=== PATIENT | male | born 1950 | race Caucasian/White ===

== ENCOUNTER 2020-11-27 20:04 | Inpatient (IN) | payer OTHER ==
[~2020-11-27] VITALS: Ht 177.8 cm; Wt 79.8 kg
[2020-11-27 20:07] VITALS: BP 167/91
[2020-11-27] MEDS ORDERED: ASA81BEC PO (20:11)
[2020-11-27] MEDS ORDERED: ENTRESTO 49 MG1 EACH PO (20:11)
[2020-11-27] MEDS ORDERED: CARVEDILOL25 MG PO (20:12)
[2020-11-27] MEDS ORDERED: LIVALO4 MG PO (20:12)
[2020-11-27] MEDS ORDERED: BRILINTA90 MG PO (20:12)
[2020-11-27 20:37] LABS: ABSOLUTE NEUTROPHILS 7.8 thou/uL (1.4-8.2); BASOPHILS 0.4 % (0.0-2.0); EOSINOPHILS 0.5 % (0.0-3.0); HEMATOCRIT 46.6 % (42.0-52.0); HEMOGLOBIN 15.6 gm/dL (14.0-18.0); LYMPHOCYTES 12.3 % (24.0-44.0); MCH 29.9 pg (26.0-34.0); MCHC 33.6 g/dL (28.0-37.0); MONOCYTES 8.7 % (1.0-8.0); PLATELET COUNT 129 thou/uL (150-400); POLYS 78.1 % (36.0-66.0); RBC 5.23 mil/uL (4.50-6.00); RDW 13.3 % (10.5-14.5)
[2020-11-27 20:53] LABS: ANION GAP 16 mmol/L (7-16); BUN 21 mg/dL (7-18); CALCIUM 9.2 mg/dL (8.5-10.1); CHLORIDE 99 mmol/L (98-107); CO2 22 mmol/L (21-32); CREATININE 1.1 mg/dL (0.7-1.3); GLUCOSE 205 mg/dL (74-106); POTASSIUM 3.9 mmol/L (3.5-5.1); SODIUM 137 mmol/L (136-145)
[2020-11-27 20:57] LABS: ALBUMIN 3.8 g/dL (3.4-5.0); LIPASE 71 U/L (73-393); SGOT 22 U/L (15-37); SGPT 31 U/L (30-65); TOTAL BILIRUBIN 0.7 mg/dL (0.2-1.0); TOTAL PROTEIN 7.6 g/dL (6.4-8.2); TROPONIN-I <0.06 ng/mL (<0.06)
[2020-11-27 21:48] LABS: LARGE PLATELETS OCCASIONAL
[2020-11-27 23:39] VITALS: BP 154/89
[2020-11-28 00:14] VITALS: BP 148/87
[2020-11-28 00:30] VITALS: BP 188/120
--- NOTE | 2020-11-28 03:10 | NUR ---
PT ARRIVED ON UNIT FROM ER AT 0030. ADMITTED WITH CHOLECYSTITIS. FENTANYL PROVIDING PAIN RELIEF. ZOFRAN NAUSEA RELIEF. PLAN FOR CHOLECYSTECTOMY 11/28. RESTING COMFORTABLY. NO NEEDS VOICED. CALL LIGHT WITHIN REACH. FREQUENT OBSERVATION.
[2020-11-28 06:12] LABS: PROTIME 10.5 Seconds (9.3-11.4)
[2020-11-28 06:20] LABS: CALCIUM 9.5 mg/dL (8.5-10.1); CREATININE 1.1 mg/dL (0.7-1.3); POTASSIUM 3.9 mmol/L (3.5-5.1)
[2020-11-28 07:00] VITALS: BP 174/89
--- NOTE | 2020-11-28 08:31 | NUR ---
ASSESSMENT: CM REVIEWED CHART AND SPOKE WITH PATIENT. PT WAS ADMITTED WITH GALLSTONE AND LIKELY CHOLECYSTITS. PT IS ON IV ANBX, IV FLUIDS, AND PAIN CONTROL. CM SPOKE WITH PT. PT IS ALERT AND ORIENTED X4. PT REPORTS LIVING IN A HOUSE WITH HIS . PT REPORTS ABOUT 4 STEPS TO ENTER THE HOME WITH HANDRAIL AND ABOUT 3 STEPS TO HIS BEDROOM. PT REPORTS BEING FULLY INDEPENDENT WITH ADLS AND AMBULATION. PT DENIES HAVING ANY DME AT HOME OR THE NEED FOR IT. CM DISCUSSED ROLE. PT DENIES HAVING HH IN THE PAST OR SNF HX. PT DOES NOT ANTICIPATE HAVING ANY NEEDS. PT IS CURRENTLY NPO AND GENERALY SURGERY CONSULTED. CM WILL CONTINUE TO FOLLOW.
--- NOTE | 2020-11-28 09:50 | EKG ---
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
--- NOTE | 2020-11-28 10:10 | NUR ---
Assumed care of pt at 0700. Pt a&ox4. This a/m c/o of pain 09/03 and states what he is being give for pain is not helping. Provider notified. New orders noted. Bad ultrasound and EKG ordered as well. IVF infusing. Will likely have surgery once medically cleared. Call light within reach. Will continue to monitor.
--- NOTE | 2020-11-28 12:59 | 2DMMODE ---
[facility] [place] [address] 2 D/M-MODE ECHOCARDIOGRAM Name: SHRADDHA RIVAS Room #: 434-P ADM IN M.R.#: [id number] Admission: 11/27/20 Attend Phys: Lilibeth Fragoso MD Discharge: Date of : 46 Report #: [id number] THIS REPORT FOR: cc: Neal Rae Herbert E. DO Lammoglia, Francisco J. MD ~ APPROVED REPORT Study performed: 11/28/2020 12:06:06 EXAM: Comprehensive 2D, Doppler, and color-flow Echocardiogram Patient Location: Bedside Room #: 434 Status: routine BSA: 1.98 HR: 81 bpm BP: 174/89 mmHg Other Information Study Quality: Adequate Indications Congestive Heart Failure CAD Hypertension/HDD HLD 2D Dimensions RVDd: 38.73 mm IVSd: 11.62 (7-11mm) LVOT Diam: 23.59 (18-24mm) LVDd: 51.93 mm PWd: 11.39 (7-11mm) Ascending Ao: 30.31 (22-36mm) LVDs: 40.97 (25-40mm) Aortic Root: 30.41 mm Volumes Left Atrial Volume (Systole) Single Plane 4CH: 79.09 mL Single Plane 2CH: 56.15 mL LA ESV Index: 34.00 mL/m2 Aortic Valve AoV Peak Yoel.: 2.46 m/s AO Peak Gr.: 24.24 mmHg LVOT Max P.69 mmHg AO Mean Gr.: 13.62 mmHg LVOT Mean P.08 mmHg [facility] [address] [place] [address] 2 D/M-MODE ECHOCARDIOGRAM Name: SHRADDHA RIVAS Room #: 434-P [facility] IN ..#: [id number] Admission: 11/27/20 Attend Phys: Lilibeth Fragoso, Discharge: Date of : 46 Report #: [id number] AO V2 Mean: 1.76 m/s LVOT Max V: 0.96 m/s AO V2 VTI: 46.29 cm LVOT Mean V: 0.66 m/s MATEO (VTI): 1.75 cm2 LVOT V1 VTI: 18.59 cm MATEO Vmax: 1.70 cm2 SV (LVOT): 81.18 mL Mitral Valve E/A Ratio: 1.3 MV Decel. Time: 195.99 ms MV E Max Yoel.: 0.80 m/s MV A Yoel.: 0.61 m/s MV PHT: 56.84 ms IVRT: 129.18 ms Pulmonary Valve PV Peak Yoel.: 0.91 m/s PV Peak Gr.: 3.30 mmHg Pulmonary Vein P Vein S: 0.56 m/s P Vein A: 0.17 m/s P Vein D: 0.46 m/s P Vein A Dur.: 73.8 msec P Vein S/D Ratio: 1.22 Tricuspid Valve TR Peak Yoel.: 2.90 m/s TR Peak Gr.: 33.75 mmHg Left Ventricle The left ventricle is normal size. Regional wall motion abnormalities are noted. Mild concentric left ventricular hypertrophy. Left ventricular systolic function is moderate to severely decreased. LVEF is 30-35%. Right Ventricle Right ventricle is at the upper limits of normal. Right ventricle is mildly hypokinetic. Atria Left atrium is mild to moderately dilated. The right atrium size is normal. Aortic Valve Aortic valve is calcified. Mild aortic regurgitation. There is mild valvular aortic stenosis. Calculated aortic valve area is 1.7 cm2 with maximum pressure gradient of 24 mmHg and mean pressure gradient of 13.6 mmHg. [facility] [address] [place] [address] 2 D/M-MODE ECHOCARDIOGRAM Name: SHRADDHA RIVAS Room #: 434-P [facility] IN [facility]#: [id number] Admission: 11/27/20 Attend Phys: Lilibeth Fragoso, Discharge: Date of : 46 Report #: [id number] Mitral Valve Mitral valve leaflets are mildly thickened. Severe mitral regurgitation. No evidence of mitral valve stenosis. Tricuspid Valve The tricuspid valve is normal in structure. Mild tricuspid regurgitation. PAP is estimated at 39-48 mmHg. Pulmonic Valve The pulmonary valve is normal in structure. Trace pulmonic regurgitation. Great Vessels The aortic root is normal in size. IVC is not visualized. Pericardium No pericardial effusion. <Conclusion> The left ventricle is normal size. LVEF is 30-35%. Regional wall motion abnormalities are noted. Right ventricle is at the upper limits of normal. Right ventricle is mildly hypokinetic. Left atrium is mild to moderately dilated. Aortic valve is calcified. Mild aortic regurgitation. There is mild valvular aortic stenosis. Calculated aortic valve area is 1.7 cm2 with maximum pressure gradient of 24 mmHg and mean pressure gradient of 13.6 mmHg. Mitral valve leaflets are mildly thickened. Severe mitral regurgitation. The tricuspid valve is normal in structure. Mild tricuspid regurgitation. PAP is estimated at 39-48 mmHg. No pericardial effusion. <ELECTRONICALLY SIGNED> By: Jose Monaco MD 11/28/20 1258 1258 1258 Jose Monaco MD /INF
[2020-11-28 13:50] VITALS: BP 135/92
[2020-11-28 17:15] VITALS: BP 155/105
[2020-11-28 20:02] VITALS: BP 144/78
[2020-11-28 21:30] LABS: URINE BILIRUBIN NEGATIVE (Negative); URINE BLOOD 1+ (Negative); URINE CLARITY CLEAR; URINE COLOR YELLOW; URINE GLUCOSE-RANDOM* 3+ (Negative); URINE KETONES TRACE (Negative); URINE LEUKOCYTES NEGATIVE (Negative); URINE NITRITE NEGATIVE (Negative); URINE PROTEIN (DIPSTICK) 1+ (Negative); URINE SPECIFIC GRAVITY >= 1.030 (1.005-1.035); URINE UROBILINOGEN 0.2 E.U./dl (0.2-1.0)
[2020-11-28 21:43] LABS: BACTERIA 1-9 Few /HPF (None Seen); CASTS None Seen /LPF (None Seen); CRYSTALS None Seen /LPF (None Seen); SQUAMOUS None Seen /LPF (0-3); URIC ACID CRYSTALS 0-3 Few /LPF (None Seen); URINE RBC 0-2 Rare /HPF (0-2); URINE WBC None Seen /HPF (0-5)
[2020-11-29 04:23] VITALS: BP 150/83
--- NOTE | 2020-11-29 05:19 | NUR ---
Pt. slept intermittently during the night. Medicated for pain with some relief except this am he stated he's hurting too bad and he can't wait another hour for the next dose. NETWORK ARCHITECT notified and order received. Voiding per urinal , urine specimen sent to lab. Cont. on enhanced precaution , afebrile. Kept NPO since MN per order.
[2020-11-29 06:05] LABS: ABSOLUTE NEUTROPHILS 11.1 thou/uL (1.4-8.2); BASOPHILS 0.6 % (0.0-2.0); HEMATOCRIT 38.8 % (42.0-52.0); LYMPHOCYTES 6.9 % (24.0-44.0); MCH 29.5 pg (26.0-34.0); MCHC 33.1 g/dL (28.0-37.0); MCV 89.2 fL (80.0-100.0); MONOCYTES 10.9 % (1.0-8.0); PLATELET COUNT 91 thou/uL (150-400); POLYS 81.6 % (36.0-66.0); RBC 4.35 mil/uL (4.50-6.00); RDW 13.4 % (10.5-14.5); WBC 13.6 thou/uL (4.0-11.0)
[2020-11-29 06:23] LABS: HEMOGLOBIN 12.9 gm/dL (14.0-18.0)
[2020-11-29 06:29] LABS: ALBUMIN 2.8 g/dL (3.4-5.0); CALCIUM 8.7 mg/dL (8.5-10.1); CREATININE 1.1 mg/dL (0.7-1.3); MAGNESIUM 1.8 mg/dL (1.8-2.4); POTASSIUM 3.7 mmol/L (3.5-5.1); TOTAL BILIRUBIN 1.7 mg/dL (0.2-1.0); TOTAL PROTEIN 6.2 g/dL (6.4-8.2)
[2020-11-29 07:20] VITALS: BP 127/76
--- NOTE | 2020-11-29 12:56 | NUR ---
SW reviewed chart and spoke with nursing and attending physician. Pt was transferred to from and placed in Enhanced Isolation due to COVID-19. Pt febrile and is on IV abx. Lap ling that was planned for today has been cancelled. Pt to have lap ling at a later time. Plan is for pt to discharge home. IVON is following to assist as needed with discharge planning.
[2020-11-29 15:39] VITALS: BP 91/62
--- NOTE | 2020-11-29 17:45 | NUR ---
ASSUMED CARE OF PT AT 0700. PT ALERT AND ORIENTED IN MOD TO SEVERE DISTRESS THIS MORNING - CHILLS, FEBRILE AT 101.2. C/O 09/03 GEN ABD PAIN. LIMITED RELIEF WITH FENTANYL - CHANGED TO DILAUDID - BETTER RELIEF. BOTH D/C'D DUE TO SCHED HEPATOBILIAR YSCAN TO BE DONE TOMORROW. NO PLANS FOR SURGERY. OK TO HAVE CLEAR LIQUIDS PER PHYSICIAN. USING URINAL. SPOKE W/ REGARDING POC. BETA BLOCKERS HELD DUE TO LOW BP. WCM.
[2020-11-29 20:19] VITALS: BP 97/51
[2020-11-30] VITALS (7 sets, daily range): BP systolic 117–165; BP diastolic 70–93
[2020-11-30 01:06] LABS: GLYCOHEMOGLOBIN (HGB A1C) 6.5 % (4.8-5.6)
--- NOTE | 2020-11-30 03:30 | NUR ---
Pt. slept well last night. Denies being in pain and hoping it won't come back. Cont. on enhanced precaution , afebrile. No shortness of breath and tolerating room air well. Kept NPO for test. IV got pulled out sometime this am when he woke up. New IV placed on right FA. Up ad anshul in room with steady gait.
[2020-11-30 06:23] LABS: HEMATOCRIT 36.3 % (42.0-52.0); MCH 29.8 pg (26.0-34.0); MCV 90.4 fL (80.0-100.0); RBC 4.02 mil/uL (4.50-6.00); RDW 13.5 % (10.5-14.5); WBC 10.5 thou/uL (4.0-11.0)
[2020-11-30 06:38] LABS: ALBUMIN 2.4 g/dL (3.4-5.0); CALCIUM 8.9 mg/dL (8.5-10.1); CREATININE 1.2 mg/dL (0.7-1.3); POTASSIUM 3.5 mmol/L (3.5-5.1); TOTAL PROTEIN 5.7 g/dL (6.4-8.2)
--- NOTE | 2020-11-30 13:04 | NUR ---
SW reviewed chart and spoke with nursing and attending physician. Pt remains in Enhanced Isolation due to COVID-19. Pt is afebrile and not requiring O2. Pt is on IV abx. Pt had PIPIDA scan earlier today. No plans for surgery during hospitalization. Plan is for pt to discharge home when medically stable. SW is following to assist as needed with discharge planning.
--- NOTE | 2020-11-30 17:20 | NUR ---
ASSUMED CARE OF PT AT 0700. PAIN IMPROVED TODAY. PLACED PERC CHOLECYSTOSTOMY DRAIN IN IR. VITALS STABLE. PAIN CONTROLLED. CALLS APPROPRIATELY. IVF INFUSING PER ORDER. WCM.
[2020-12-01 00:12] VITALS: BP 128/75
[2020-12-01 05:40] VITALS: BP 136/77
--- NOTE | 2020-12-01 07:19 | NUR ---
Pt. slept well during the night. Berenice drain on RUQ abd with dressing intact. Flushed with 10 cc NS and emptied 125 ml of serosanguinous dge with a small stringy clot. He did not request for pain med till this am. Tolerating liquids wih no nausea or vomiting. He has been afebrile. Tolerating room air well with no respiratory distress. Voiding per bathroom and ambulates with steady gait.
[2020-12-01 07:54] VITALS: BP 138/92
[2020-12-01] MEDS ORDERED: HYDROCODON-ACE1 EAC7 PO ×2 (10:55→11:01)
--- NOTE | 2020-12-01 13:30 | NUR ---
DISCHARGE NOTE: IVON reviewed chart and spoke with nursing and attending physician. Pt remains in Enhanced Isolation due to COVID-19. Pt is afebrile and not requiring O2. Pt had ling drain placed yesterday. Plan for pt to follow up with surgery as an outpatient to schedule lap ling. IVON placed call to pt's room multiple times. No answer. IVON discussed with pt's nurse to ask pt if he needs home health for drain care. No orders for HH written at this time. No discharge needs identified at this time. IVON is available to assist should needs arise.
--- NOTE | 2020-12-01 14:00 | NUR ---
CARE ASSUMED AT 0700, ALERT AND ORIENTED X4, DENIES CHEST PAIN, NAUSEA AND VOMITTING. PT COMPLAINS OF BACK PAIN DUE TO CHOLECYSTITIS, HAS A DRAIN IN PLACE. PERCUTANEOUS CHOLECYCTOSTOMY DRAIN CLEAN, DRY AND INTACT. FLUSHED BID. PT TOLERATING REGULAR DIET. DISCHARGE ORDERS IN PLACE.
[2020-12-01] MEDS ORDERED: AUGMENTIN 875-1 EACH PO (14:02)
[2020-12-01 14:49] VITALS: BP 138/92
--- NOTE | 2020-12-01 16:18 | NUR ---
1510 DISCHARGE INSTRUCTION AND MEDICATION INFO GIVEN TO PT. PT EDUCATED ON HOW TO EMPTY ANDREW DRAIN, WRITE OUTPUT DOWN, FOR WHEN HE GOES SUPA SEE DR. AKINS IN 2 WEEKS. IV D/C. PT BELONGINGS PACKED, TAKEN DOWN VIA WHEELCHAIR.
== END 2020-12-01 15:30 | disposition home or self-care (01) | DRG 871 ==
LOC: ER 20:04 → 4S 23:13 → 3W 23:13 → EROBS 23:13 → 4S 11-28 00:16 → 3W 11-28 18:55
PROVIDERS: Emergency Medicine; Hospitalist; Internal Medicine; Nurse Practitioner Family; ADMIT Internal Medicine; ATTEND Internal Medicine
PROC: 0F943ZZ Drainage of Gallbladder, Percutaneous Approach (ICD-10-PCS; principal; 2020-12-01)
DX: A41.9 Sepsis, unspecified organism (principal); U07.1 COVID-19; J12.82 Pneumonia due to coronavirus disease 2019; K80.00 Calculus of gallbladder with acute cholecystitis without obstruction; I50.22 Chronic systolic (congestive) heart failure; E78.00 Pure hypercholesterolemia, unspecified; E78.5 Hyperlipidemia, unspecified; I11.0 Hypertensive heart disease with heart failure; I48.0 Paroxysmal atrial fibrillation; I25.5 Ischemic cardiomyopathy; R73.9 Hyperglycemia, unspecified; I25.10 Atherosclerotic heart disease of native coronary artery without angina pectoris; I08.0 Rheumatic disorders of both mitral and aortic valves; Z95.5 Presence of coronary angioplasty implant and graft; Z95.0 Presence of cardiac pacemaker; Z79.82 Long term (current) use of aspirin; Z79.899 Other long term (current) drug therapy; I25.2 Old myocardial infarction
CPT/HCPCS: 10080

== ENCOUNTER 2020-12-30 06:38 | Day surgery (SDC) | payer OTHER ==
[~2020-12-30] VITALS: Ht 180.3 cm; Wt 78.9 kg
[~2020-12-30 06:38] MED LIST: ASA5UEC PO; ASA81BEC PO; AUGMENTIN 875-1 EACH PO; BRILINTA90 MG PO; CARVEDILOL25 MG PO; ENTRESTO 49 MG1 EACH PO; HYDROCODON-ACE1 EAC7 PO; LIVALO4 MG PO; VITAMIN D3100 MCG PO
[2020-12-30 08:10] VITALS: BP 126/87
[2020-12-30 08:12] LABS: HEMATOCRIT 38.5 % (42.0-52.0); HEMOGLOBIN 12.9 gm/dL (14.0-18.0); MCH 29.2 pg (26.0-34.0); MCHC 33.5 g/dL (28.0-37.0); MCV 87.4 fL (80.0-100.0); RBC 4.4 mil/uL (4.50-6.00); RDW 12.7 % (10.5-14.5); WBC 9.6 thou/uL (4.0-11.0)
[2020-12-30 08:36] LABS: CALCIUM 10.3 mg/dL (8.5-10.1); CREATININE 1.1 mg/dL (0.7-1.3)
[2020-12-30 08:42] LABS: ALBUMIN 3.2 g/dL (3.4-5.0); TOTAL BILIRUBIN 1.3 mg/dL (0.2-1.0); TOTAL PROTEIN 7.4 g/dL (6.4-8.2)
[2020-12-30 14:00] VITALS: BP 142/99
--- NOTE | 2020-12-30 15:00 | NUR ---
ADM TYLENOL 325MG 2 TABS AND IBUPROPHEN 600MG PO FOR PAIN TO ABD. PT STATED IT WAS TOO MANY PILLS AND WANTED TO PICK WHICH ONES TO TAKE. TOLD PT THAT BOTH MEDS ARE ORDERED. PT WANTING JELLO TO HELP WITH TAKING THE MEDS. GOT ORANGE JELLO FOR PT. PT TOLERATING JELLO, REFUSED APPLE JUICE.
--- NOTE | 2020-12-30 15:30 | NUR ---
PT ARRIVED TO ROOM FROM SURGERY. PT TOLERATING WATER AT THIS TIME. PT STATED HE DIDN'T HAVE ANY PAIN AT THIS TIME TO ABD. PT WORRIED OF HAVING N/V, PT REQUESTING TO HAVE A BLUE BAG FOR EMESIS. PT LUNGS CLEAR AND ON ROOM AIR. PT HAS IV TO RT HAND SL AND WILL ADD NS AT 100ML/HR. GAVE PT A URINAL. PT WANTING TO HAVE SCD'S OFF. EDUCATED PT ABOUT THEY HELP WITH CIRCULATION AND PREVENT BLOOD CLOTS, PT AWARE. PT STATED HE WAS HERE A MONTH AGO WITH A PERCUTANEOUS DRAIN. PT STATED THAT HE DIDN'T HAVE ANY PAIN WHERE DRAIN WAS. PT ON CLEAR LIQUID DIET. PT VOIDED CRUZITO COLOR URINE 600ML. PT JOKING ABOUT WHY HIS URINE IS BLOODY. PT STATED HE NEEDS GLASSES TO SEE, HAS THEM AT HOME. PT BOWEL SOUNDS ARE ACTIVE AND STATED LBM 02/05, STATED HE HAS ISSUES WITH CONSTIPATION.
[2020-12-30 16:05] VITALS: BP 155/113
--- NOTE | 2020-12-30 19:38 | NUR ---
PT RESTING WITH EYES CLOSED. PT AWAKE WHEN ENTER ROOM. PT WANTING THE FAN POINTING TOWARDS HIM AND AC ADJUSTED, PT DIDN'T WANT THE ROOM GETTING TO HOT.
[2020-12-30 21:16] VITALS: BP 94/65
--- NOTE | 2020-12-31 02:14 | NUR ---
ASSESSED AT START OF SHIFT. PT RESTING IN BED. UP WITH SBA ASSIST TO THE BATHROOM, URINAL AT BEDSIDE. PT WALKED AROUND THE UNIT PRIOR TO BED TIME. LAP SITE INATCT. MAGDA DRAIN OUTPUT ON ASSESSMENT 60CC. PT ON CLEAR LIQUID DENIES N/V. FALL PREC IN PLACE, SCHDULED PAIN MEDS GIVEN. WILL CONT WITH POC TILL EOS.
[2020-12-31 04:50] LABS: HEMATOCRIT 35.4 % (42.0-52.0); HEMOGLOBIN 11.7 gm/dL (14.0-18.0); MCH 29.2 pg (26.0-34.0); MCV 88.5 fL (80.0-100.0); RBC 4.01 mil/uL (4.50-6.00); RDW 13.1 % (10.5-14.5); WBC 11.8 thou/uL (4.0-11.0)
[2020-12-31 05:00] VITALS: BP 102/71
[2020-12-31 05:05] LABS: ALBUMIN 2.6 g/dL (3.4-5.0); CALCIUM 9.3 mg/dL (8.5-10.1); CREATININE 1.3 mg/dL (0.7-1.3); POTASSIUM 4.2 mmol/L (3.5-5.1)
[2020-12-31 08:35] VITALS: BP 104/64
[2020-12-31 11:02] VITALS: BP 109/64
--- NOTE | 2020-12-31 12:43 | NUR ---
Patient appeared uncomfortable at discharge. When offered interventions patient refused, stating he just needed to go home and sleep it off. Discharge information on splinting of incision site and follow-up care. Patient was discharged from hospital via personal vehicle with all personal belongings.
--- NOTE | 2021-01-03 16:06 | PATH ---
[facility] [address] [place] [address] PATHOLOGY RPT PROCEDURE Name: SHRADDHA RIVAS Room #: DEP [facility] M.R.#: [id number] Admission: 12/30/20 Date of : 46 Discharge: 12/31/20 Report #: [id number] Path Case #: [id number] [facility] Accession Number: [id number] . 01 Material submitted: . gallbladder - GALLBLADDER . 01 Clinical history: . CHOLECYSTITIS CHOLEDOCOLITHIASIS . 02 Diagnosis: Gallbladder, cholecystectomy: - Marked acute and hemorrhagic cholecystitis associated with extensive ulceration. - Cholelithiasis. 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 02 Electronically signed: . Arlette Sebastian MD, Pathologist NPI- [id number] . 01 Gross description: . The specimen is received in formalin labeled "Shraddha Rivas gallbladder" and consists of a markedly disrupted pink-powell to purple hemorrhagic and cauterized gallbladder measuring 6.5 x 2.7 x 2.5 cm. Due to the nature of the specimen, the margin is unable to be determined. Present within the container and gallbladder lumen are multiple black gravel-like to smooth calculi measuring between 0.1 cm and 1.1 cm. The mucosa is hemorrhagic powell-brown and roughened with a wall ranging from 0.2 cm to 1.0 cm. No masses are identified. [employer] sections are submitted in A1-A2. (SDY; 01/02/2021) SYU/SYU 01/02/2021 1305 Local . 02 Pathologist provided ICD-10: K80.00 . 02 CPT . 758838 Specimen Comment: A courtesy copy of this report has been sent to [phone] Specimen Comment: Report sent to Performed at: [address] [id number] MD Ceslo Enriquez MD Phone: [phone] Performed at: 02 [place] [address] PATHOLOGY RPT PROCEDURE Name: EVELYNSHRADDHA Room #: DEP [facility] M.R.#: [id number] Admission: 12/30/20 Date of : 46 Discharge: 12/31/20 Report #: [id number] Path Case #: [id number] [facility] [address], [place], [place] [id number] MD Arlette Sebastian MD Phone: [phone]
== END 2020-12-31 11:48 | disposition home or self-care (01) ==
LOC: TBA 06:38 → OR 06:38 → TBA 06:40 → OR 11:51 → 4S 13:18 → OR 13:55
PROVIDERS: ATTEND Surgery
DX: K80.00 Calculus of gallbladder with acute cholecystitis without obstruction (principal); K82.A1 Gangrene of gallbladder in cholecystitis; I25.10 Atherosclerotic heart disease of native coronary artery without angina pectoris; I25.5 Ischemic cardiomyopathy; I11.0 Hypertensive heart disease with heart failure; I50.20 Unspecified systolic (congestive) heart failure; E78.5 Hyperlipidemia, unspecified; E78.00 Pure hypercholesterolemia, unspecified; Z98.890 Other specified postprocedural states; Z79.899 Other long term (current) drug therapy; Z87.891 Personal history of nicotine dependence; Z95.1 Presence of aortocoronary bypass graft
CPT/HCPCS: 50010; 50101; 50411; 50555; 50558; 51489; 52265; 52266; 52287; 53307; 53310; 53312; 54022; 54118; 55245; 56462; 56525; 56526; 56527; 56674; 62110; 62900; 70005